=== PATIENT | male | born 1960 | race Caucasian/White ===

== ENCOUNTER 2020-03-21 18:53 | Emergency (ER) | payer OTHER, SELFPAY ==
[2020-03-21 19:09] VITALS: BP 127/84; PULSE 60; RESP 18; TEMP 37.4; O2SAT 99; BMI 23.9
[2020-03-21 19:40] LABS: COVID19 -Nasal RAPID Negative (Negative)
--- NOTE | 2020-03-21 19:54 | ED_ITS ---
HPI - Recheck/Abnormal Lab/Rx General Chief Complaint: Recheck/Abnormal Lab/Rx Stated Complaint: wants a covid test, no exposure, no symptoms Time Seen by Provider: 03/21/20 19:12 Source: patient Mode of arrival: Family Vehicle Limitations: no limitations History of Present Illness HPI narrative: Patient here for testing for COVID. Has no symptoms. Given his work he states his hours only provide for tight to be tested. No cough cold congestion. No fever chills cough or dyspnea. Does not smoke. No heart attack strokes or diabetes or lung issues. Related Data Allergies Allergy/AdvReac Type Severity Reaction Status Date / Time No Known Drug Allergies Allergy Verified 03/21/20 19:14 Review of Systems Review of Systems Narrative: GENERAL: Denies chills, fatigue, malaise, fever, sweats. HEENT: Denies sinus pain, ear pain, sore throat, difficulty swallowing RESPIRATORY: Denies dyspnea, cough CARDIOVASCULAR: Denies chest pain, palpitations, edema, GASTROINTESTINAL: Denies nausea, vomiting, abdominal pain, diarrhea, constipation, melena. : Denies dysuria, frequency, hematuria MUSCULOSKELETAL: denies muscle or bony pain SKIN: Denies rash, skin lesions NEUROLOGIC: Denies weakness, headache, numbness, change in speech, confusion PSYCHIATRIC: No SI or HI or hallucinations ROS Unobtainable: All systems reviewed & are unremarkable except as noted in HPI and below Patient History Social History Smoking Status: Never smoker Smoking Status: Never smoker alcohol intake frequency: 0-2 drinks per day Substance Use Type: does not use Exam Narrative Exam Narrative: GENERAL: patient appears stated age. Well-nourished, well- developed patient, in no distress, not toxic not dyspneic HEAD: Normocephalic. EYES: Pupils equal round and reactive. No scleral icterus. No injection no discharge ENT: Mucous membranes moist. No drooling no tongue elevation no trismus no malocclusion NECK: Trachea midline. Non tender/no submandibular tenderness CARDIOVASCULAR: Regular rate and rhythm without murmurs, gallops, or rubs. RESPIRATORY: Clear to auscultation. Breath sounds equal bilaterally. No wheezes, rales, or rhonchi. Speaks full sentences GASTROINTESTINAL: Abdomen soft, non-tender BACK: No flank tenderness. NEURO: AOx4. SKIN: Warm and dry PSYCH: Not anxious, is cooperative Initial Vital Signs Initial Vital Signs: Vital Signs Temperature 99.3 F 03/21/20 19:09 Pulse Rate 60 03/21/20 19:09 Respiratory Rate 18 03/21/20 19:09 Blood Pressure 127/84 03/21/20 19:09 Pulse Oximetry 99 03/21/20 19:09 Course Course Course Narrative: No complaints here. He just wants COVID testing Orders Ordered: ED Orders 03/21/20 19:15 COVID19 -ED/INPAT/OR/L&D Stat Reevaluation(s) Reevaluation #1: Reviewed with symptoms of COVID results are negative. He has no symptoms. He is cleared for to continue work Time: 20:00 Vital Signs Vital signs: Vital Signs - 8 hr 03/21/20 19:09 Temperature 99.3 F Pulse Rate 60 Respiratory Rate 18 Blood Pressure 127/84 Pulse Oximetry 99 MDM - Recheck/Abnormal Lab/Rx Lab Data Attestation: I reviewed the patient's lab results. Labs: Lab Results 03/21/20 Range/Units 19:15 COVID-19 PCR Negative (Negative) MDM Narrative Medical decision making narrative: Appropriate for discharge home. Vital signs reviewed. They are stable and afebrile at this time. No respiratory complaints. No COVID symptoms Discharge Plan Departure Patient Disposition: Home Clinical Impression: COVID-19 ruled out by laboratory testing Discharge Date/Time: 03/21/20 20:13 Instructions: Coronavirus Disease 2019 Activity Restrictions/Additional Instructions: Return if worsening questions or concerns. You may return to work without any restrictions. Your COVID testing was negative here today.
== END 2020-03-21 20:13 | disposition home or self-care (01) ==
PROVIDERS: Emergency Provider Emergency Medicine
DX: Z11.59 Encounter for screening for other viral diseases (principal)
CPT/HCPCS: 87635; 99281; 99282

== ENCOUNTER 2022-07-18 17:52 | Emergency (ER) | payer OTHER, SELFPAY ==
[2022-07-18 18:19] VITALS: BP 147/80; PULSE 64; RESP 15; O2SAT 98; BMI 23.2
--- NOTE | 2022-07-18 18:21 | DI.RAD.S_ITS ---
PROCEDURE: XR SHOULDER RT MIN 2V INDICATIONS: shoulder pain TECHNIQUE: Three views of the shoulder were acquired. COMPARISON: None. FINDINGS: Bones: No fractures or dislocations. Mild AC joint degeneration. Degenerative subcortical cystic changes at the rotator cuff insertion site of the humeral head. No suspicious bony lesions. Visualized ribs appear intact. Soft tissues: No suspicious soft tissue calcifications. IMPRESSION: 1. No acute fracture, dislocation, or separation. 2. Rotator cuff insertional site and AC joint degenerative changes. Dictated by: Tereza Davis M.D. on 07/18/2022 at 19:36 Approved by: Tereza Davis M.D. on 07/18/2022 at 19:38
== END 2022-07-18 20:28 | disposition left against medical advice (07) ==
PROVIDERS: Emergency Provider Emergency Medicine
DX: M25.511 Pain in right shoulder (principal)
CPT/HCPCS: 73030; 99281